=== PATIENT | male | born 1940 | race Caucasian/White ===

== ENCOUNTER 2020-02-14 07:33 | Emergency (ER) | payer MEDICARE ==
[2020-02-14 10:24] LABS: #Basophils 0.1 thou/uL (0.0-0.2); #Eosinphils 0.1 thou/uL (0.0-0.7); #Lymphocytes 0.8 thou/uL (1.20-3.40); #Monocytes 0.3 thou/uL (0.11-0.59); %Eosinophils 1.3 % (0.0-10.0); %Lymphocytes 12.4 % (21.0-51.0); %Monocytes 4.8 % (0.0-10.0); %Neutrophils 80.6 % (42.0-75.0); Hemoglobin 15.4 g/dL (14.0-18.0); Mean Corpuscular HGB CONC 34.1 g/dL (32.0-36.0); Mean Corpuscular Hemoglobin 31.1 pg (27.0-31.0); Mean Corpuscular Volume 91.1 fL (78.0-98.0); Mean Platelet Volume 8.2 fL (7.4-10.4); Platelet Count 181 thou/uL (130-400); RBC Distribution Width 11.7 % (11.5-14.5); Red Blood Cell (RBC) Count 4.97 mill/uL (4.70-6.10); White Blood Cell (WBC) Count 6.2 thou/uL (4.8-10.8)
[2020-02-14 11:15] LABS: ALT (SGPT) 12 U/L (8-55); AST (SGOT) 15 U/L (5-34); Albumin 4.3 g/dL (3.4-4.8); Alkaline Phosphatase 51 U/L (40-110); BUN (Urea Nitrogen) 22 mg/dL (8.4-25.7); Bilirubin, Total 0.6 mg/dL (0.2-1.2); Calc. Creatinine Clearance 0 mL/min (70-130); Calcium 9.9 mg/dL (7.8-10.44); Carbon Dioxide 25 mmol/L (23-31); Chloride 104 mmol/L (98-107); Estimated GFR-MDRD 54; Globulin 2.7 g/dL (2.4-3.5); Glucose 114 mg/dL (83-110); Lipase 32 U/L (8-78); Potassium 4.1 mmol/L (3.5-5.1); Sodium 140 mmol/L (136-145)
[2020-02-14 12:05] LABS: Anion Gap 15 mmol/L (10-20)
== END 2020-02-14 10:30 | disposition home or self-care (01) ==
LOC: ERS 07:33
DX: K40.90 Unilateral inguinal hernia, without obstruction or gangrene, not specified as recurrent (principal)
CPT/HCPCS: 36415; 80053; 83690; 85025; 87635; 99283; U0003

== ENCOUNTER 2020-02-15 10:17 | Observation (INO) | payer MEDICARE ==
[2020-02-14 13:57] VITALS: BMI 25.0
--- NOTE | 2020-02-14 17:54 | HP ---
HISTORY OF PRESENT ILLNESS: Gume Grace is a 79-year-old male from [place], who has recurrent right inguinal hernia. He had open bilateral inguinal hernia repairs in [place] by Dr. Garcia 2 years ago. He developed recurrent hernia about a year ago notes by his urologist. The patient's hernia is becoming larger. He became incarcerated. He could not reduce it. He presented to the emergency room [facility]. The patient had incarceration of right inguinal hernia, presented to the emergency room this morning. He while there was able to reduce his hernia. While there, the patient's daughter insisted that they call Dr. Cisneros or Zane, who has seen the family in the past, but the emergency room physician declined. The ER physician stated that the surgeon title one teacher did take care of this, but he would not come since this has been reduced. The patient called our office and we agreed to see him immediately. The patient presents normally, independently ambulatory, and caring for himself, but because of his discomfort, is in a wheelchair in my office. He has had a CBC and comprehensive metabolic, that are normal. He has not been exposed to COVID or have COVID illness. Because of his continued discomfort and recent incarceration, I have discussed with the hospital and plan is to send him to our testing center for COVID test and plan robot mesh repair, right inguinal hernia, recurrent in the morning. Hopefully, a Rapid test will be available to process his specimen to enable a timely repair of his right inguinal hernia. PAST SURGICAL HISTORY: 1. Bilateral inguinal hernia repairs in July 2017. 2. Open mesh, [place], Dr. Garcia, in 2013. 3. TURP in 2018. 4. Lithotripsy. 5. Urolithiasis. MEDICATIONS: None. SOCIAL HISTORY: Tobacco, none. Alcohol, none. 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 He lives alone independently, drives independently ambulatory, although in a wheelchair because of his recent incarceration and discomfort. ALLERGIES: NONE. PAST MEDICAL HISTORY: Noncontributory. The patient has never had a colonoscopy. REVIEW OF SYSTEMS: 10-point noncontributory. Cardiac, negative. He has never had a colonoscopy. He takes stool softener daily. He is urinating fine since his TURP 6 years ago. PHYSICAL EXAMINATION: VITAL SIGNS: Blood pressure 136/70, pulse 65, temperature 97.2 degrees. HEAD, EARS, EYES, NOSE, AND THROAT: Unremarkable. Sclerae nonicteric. SKIN: Nonjaundiced. LUNGS: Clear to auscultation. CARDIAC: Regular rate and rhythm without murmur or gallop. ABDOMEN: Soft, nontender. No masses. EXTREMITIES: No edema. Testicles normal. Left groin without hernia. Right inguinal hernia ASSESSMENT: Recurrent right inguinal hernia. PLAN: Robot repair using mesh as outpatient tomorrow morning. He understands risks and benefits, and consents. Job ID: [id number]
[~2020-02-15 10:17] MED LIST: Dexamethasone 20 MG/5 ML VIAL ONE; EPHEDRINE 25 MG/5 ML SYRINGE ONE; Glycopyrrolate 0.2 MG/ML 5 ML SYRINGE ONE; Lidocaine 1% PF 5 ML VIAL ONE; Ondansetron PF 4 MG/2 ML Vial ONE; PHENYLEPHRINE-NS 100 MCG/ML 10 ML SYRINGE ONE; PROPOFOL 200 MG/20 ML VIAL ONE; Rocuronium Bromide 10 MG/ML (10ML VIAL) ONE
[2020-02-15] MEDS ORDERED: Gabapentin 300 MG CAP ONE (10:35)
[2020-02-15] MEDS ORDERED: Acetaminophen 500 MG TAB ONE (10:36)
[2020-02-15] MEDS ORDERED: Ketorolac Tromethamine 30 MG/ML VIAL ONE (10:42)
[2020-02-15] MEDS ORDERED: Fentanyl 100 MCG/2 ML VIAL ONE (10:47)
[2020-02-15] MEDS ORDERED: Lidocaine 1% w/Epinephrine 1:100K 20 ML VIAL ONE (10:50)
[2020-02-15] MEDS ORDERED: Bupivacaine 0.25% HCL 30 ML VIAL ONE (10:50)
--- NOTE | 2020-02-15 13:01 | OP ---
DATE OF PROCEDURE: 02/15/2020 PREOPERATIVE DIAGNOSIS: Recurrent right inguinal hernia. POSTOPERATIVE DIAGNOSIS: Recurrent right inguinal hernia. PROCEDURE PERFORMED: Laparoscopic 3D Bard mesh large, repair of recurrent right inguinal hernia, indirect. ANESTHESIA: General, local 0.5% Marcaine 30 mL mixed with 1% Xylocaine with epinephrine 20 mL total volume used. DESCRIPTION OF PROCEDURE: The patient was taken to the operating room, where under general anesthesia, abdomen was clipped of hair, prepared with ChloraPrep and draped in routine fashion. Cm catheter placed at the beginning of the procedure and removed at the end. Local anesthetic was infiltrated in the skin and subcutaneous tissue about all port sites and for ilioinguinal nerve block. Incision made in right paramedian above the umbilicus, carried down to skin and subcutaneous tissue and Veress needle, established pneumoperitoneum to 15 mmHg, replacing with an 11 mm balloon port. Laparoscope inserted. Left and right anterior axillary line above the supraumbilical level. 8 mm ports placed and robot docked, positioned and indirect hernia sac noted in right groin. A 3D Bard mesh large right obtained and positioned in the abdominal cavity and peritoneal flap dissected free from the anterior superior iliac spine right to the midline, dissecting the retroperitoneum, identifying Francesco ligament, identifying iliac vessels, identifying the cord structures, dissecting a large hernia sac from the cord structures for at least 8 cm length of cord structures. The mesh then positioned over the defect, secured to Francesco ligament with 3-0 Monocryl, and anterior abdominal wall just to the right of the inferior epigastric vessels with 3-0 Vicryl. Once it was secured in proper position, good hemostasis was noted. The peritoneal flap closed with continuous suture of 3-0 V-Loc suture. Good hemostasis noted. Irrigant and pneumoperitoneum evacuated. All instruments removed and anterior rectus fascia, left paramedian closed with interrupted 0 Vicryl suture, UR needle. Skin incision was approximated with 4-0 Monocryl subcuticular and Dermabond applied. Job ID: [id number]
[2020-02-15] MEDS ORDERED: Acetaminophen 500 MG TAB PO PRN (19:04)
[2020-02-15] MEDS ORDERED: Ondansetron PF 4 MG/2 ML Vial IVP PRN (19:04)
[2020-02-15] MEDS ORDERED: Ibuprofen 600 MG TAB PO PRN (19:05)
[2020-02-15] MEDS ORDERED: traMADol HCl 50 MG TAB PO PRN (19:05)
--- NOTE | 2020-02-15 21:11 | EKG ---
Test Reason : PREOP Blood Pressure : / mmHG Vent. Rate : 062 BPM Atrial Rate : 062 BPM P-R Int : 164 ms QRS Dur : 126 ms QT Int : 424 ms P-R-T Axes : 053 -60 064 degrees QTc Int : 430 ms Normal sinus rhythm Left axis deviation Non-specific intra-ventricular conduction block Possible Lateral infarct , age undetermined Abnormal ECG No previous ECGs available Confirmed by Mohini MALDONADO ([id number]) on 02/15/2020 9:11:09 PM Referred By: SINTIA Confirmed By:Mohini MALDONADO
--- NOTE | 2020-02-16 01:32 | CON ---
DATE OF CONSULTATION: 02/15/2020 REASON FOR CONSULTATION: Unable to place Cm catheter. HISTORY OF PRESENT ILLNESS: Mr. Grace is a 79-year-old gentleman with a prior history of ureteral stone disease and BPH. He is status post TURP over 5 years ago and ureteroscopy approximately 2 years ago for ureteral stones. He presented to the hospital on 02/14/2020 with incarcerated left inguinal hernia. He had a prior hernia repair in 2018. He was admitted for surgical repair of his incarcerated inguinal hernia. It could be reduced in the emergency room. He was taken to the operating room today. He is now status post surgical therapy. He has not voided since the surgery, so a bladder scan was performed. There was noted to be 300 mL. Several attempts by the nursing staff were unsuccessful in placing a Cm catheter and for that reason, a urologic consultation was requested. CHRONIC MEDICATIONS: None. PAST MEDICAL HISTORY: No chronic medical problems. PAST SURGICAL HISTORY: Bilateral inguinal hernia repair in 2018, TURP, ureteroscopy, inguinal hernia repair today on 02/15/[address] Rod. SOCIAL HISTORY: He is a nonsmoker. Denies excessive alcohol use. He lives alone. ALLERGIES: NO KNOWN DRUG ALLERGIES. FAMILY HISTORY: Noncontributory. REVIEW OF SYSTEMS: RESPIRATORY: Denies any shortness of breath. CARDIOVASCULAR: Denies chest pain or palpitations. GASTROINTESTINAL: Denies chronic constipation or diarrhea. GENITOURINARY: Denies significant voiding problems prior to admission. He does state that he does not void, apparently had a fairly large volume of urine in his bladder. PHYSICAL EXAMINATION: GENERAL: He is awake and alert. He is in no distress at this time. VITAL SIGNS: Most recent temperature 97.8, blood pressure 131/72, pulse 67, and O2 saturation 98% on room air. HEENT: Normocephalic and atraumatic. NECK: Supple without masses. CHEST: Clear to auscultation. ABDOMEN: Soft and nontender. No distention noted. GENITOURINARY: He is uncircumcised. He has some erythema on the left side of the urethral meatus. Scrotum normal. Testicles palpably normal bilaterally. EXTREMITIES: No edema. PROCEDURE: Cm catheter, 18-Tuvaluan Coude catheter placed. Concentrated urine 200 mL drained. Catheter was removed. IMPRESSION: This patient has a prior history of transurethral resection of the prostate. He typically is not voiding until he has a large volume of urine in his bladder. He has no sensation to void at this time, and a Cm catheter was placed for only 200 mL. I removed the catheter based on low volume and no sensation to void. It is likely he will not be able to void until he has a larger volume of urine in his bladder. RECOMMENDATIONS: Place Cm catheter prior to discharge if he is not able and has the sensation he needs to void. If he has the sensation he needs to void and bladder scan demonstrates 500 mL or more in his bladder, a Cm catheter should be placed pror to discharge and follow-up should be arranged with his urologist in [place] (Dr. Gordon) or he can follow-up in our office Job ID: [id number] [facility] SYSTEMNakul
[2020-02-16] MEDS ORDERED: Tamsulosin HCl 0.4 MG CAP PO SCH ×2 (07:45→21:00)
[2020-02-16] MEDS ORDERED: FLU VACC QS2020-21(65YR UP)/PF 240 MCG/0.7 ML SYRINGE IM ONE (09:00)
[2020-02-16 16:22] VITALS: BP 142/68; TEMP 98
--- NOTE | 2020-02-17 01:32 | DIS ---
DATE OF ADMISSION: 02/15/2020 DATE OF DISCHARGE: 02/16/2020 DISCHARGE DIAGNOSES: 1. Recurrent right inguinal hernia. 2. Bladder outlet obstruction, urinary retention postoperatively. PROCEDURE: Laparoscopic/robotic mesh repair, recurrent right inguinal hernia. CONSULTATION: Dr. Birmingham, Urology. The patient discharged home with a Cm. Intraoperative Cm placed without problems, 800 mL drained, not bloody, removed postoperatively. The patient observed in Day Stay, could not urinate, admitted for overnight observation, and Dr. Birmingham performed an in-and out-catheterization late evening of surgery after bladder scan suggested more than 600 retained urine, but in-and-out catheterization revealed only 150. The patient through the night had overflow incontinence, could not urinate, multiple small volume voids. The nurse or Dr. Birmingham placed a new catheter, 1000 mL urinary retention. The patient is discharged home with a Cm catheter. Follow up with outpatient urologist at [place] who has been seeing him as patient is 7 years status post TURP. HISTORY: A 79-year-old male patient, bilateral inguinal hernia repairs 2 years ago, suffered a recurrent right inguinal hernia, presented to the emergency room in [facility] with an incarceration. Incarceration reduced by the patient while waiting in the emergency room. Labs obtained. The emergency room physician refused to contact the patient and the patient's family desired surgeons, Amelia or Dr. Degroot. The patient and the patient's daughter walked across the parking lot to our office where we saw him that day. COVID screen had not been obtained, and as the patient was having pain from his hernia, plan was to perform a hernia repair the next day; however, [facility] would not approve rapid COVID test and COVID test results routinely obtain the evening prior would not be available until late in the evening. The patient was instructed to go to [facility] to have a Rapid test which they did morning of surgery, reported for robot laparoscopic mesh repair, recurrent right inguinal hernia, admitted for the above reasons, and discharged with a Cm as described. Flomax given to add to his routine medications MiraLAX and fiber. Follow up with his local urologist, Dr. Alec Gordon in [place]. Follow up with me in 2 to 3 weeks. Job ID: [id number]
[2020-02-17] MEDS ORDERED: Citrucel 500 MG TAB PO SCH (09:00)
[2020-02-17] MEDS ORDERED: Polyethylene Glycol 3350 17 GM Packet PO SCH (09:00)
== END 2020-02-16 16:23 | disposition home or self-care (01) ==
LOC: SDC 10:17 → SJJU 18:09
PROVIDERS: ADMIT Specialist; ATTEND Specialist
PROC: 0YU54JZ Supplement Right Inguinal Region with Synthetic Substitute, Percutaneous Endoscopic Approach (ICD-10-PCS; principal; 2020-02-15)
DX: K40.91 Unilateral inguinal hernia, without obstruction or gangrene, recurrent (principal); N32.0 Bladder-neck obstruction; R33.8 Other retention of urine
CPT/HCPCS: 49651; 93005; C1781; 51798; 93010; G0378; J0690; J1100; J1885; J2405; J2704; J3010; S0020